=== PATIENT | male | born 1960 | race Caucasian/White ===

== ENCOUNTER 2017-12-20 17:46 | Emergency (ER) | payer OTHER ==
[2017-12-20] MEDS ORDERED: ACETAMINOPHEN 500 MG TAB PO ONE (18:15)
[2017-12-20] MEDS ORDERED: IBUPROFEN 800 MG TAB PO ONE (18:15)
--- NOTE | 2017-12-20 18:29 | EDPHY ---
H & P Time Seen by Provider: 12/20/17 17:52 HPI/ROS: HPI Fever, urinary frequency, body aches. 57-year-old male by private vehicle with his . This patient was at work. At approximately 12 noon he developed sudden-onset fever, muscle aches and joint aches as well as increased frequency with urination and dysuria. He reports he has a history of urinary tract infection 15 years ago. He did not see a urologist at that time. He was treated with ciprofloxacin successfully. Denies any ill contacts. He was vaccinated for influenza. ROS: Constitutional: Fever and chills as above. Fatigue. Eyes: No discharge. No changes in vision. ENT: Mild sore throat. No nasal congestion or rhinorrhea. Respiratory: No cough. No shortness of breath. Cardiac: No chest pain, no palpitations. Gastrointestinal: No abdominal pain, no vomiting, no diarrhea. Genitourinary: No hematuria. As above. No discharge. Musculoskeletal: As above. Skin: No rashes. Neurological: No headache. No focal weakness or altered sensation. Past medical history: As above. Orthopedic surgeries. Social history: Nonsmoker. No alcohol. Here with his . Physical Exam: General Appearance: Alert, no distress. This patient is responding to questions appropriately and in full sentences. This patient appears well- hydrated and well-nourished. Eyes: Pupils equal and round no pallor or injection. No lid edema, erythema or injection. Respiratory: There are no retractions, lungs are clear to auscultation with good air movement bilaterally. Cardiovascular: Regular rate and rhythm. No murmur. Gastrointestinal: Abdomen is soft and nontender, no masses, bowel sounds normal. No focal tenderness at McBurney's point. No Garcia sign. Neurological: Motor sensory function is grossly intact. Cranial nerves are normal. Gait is normal. Skin: Warm and dry, no rashes. Musculoskeletal: Neck is supple and nontender. Extremities are symmetrical. All joints range without pain or impingement. Psychiatric: No agitation. No depression. Database: EKG: Imaging: Procedures: Emergency department course: Vital signs reviewed. He is mildly tachycardic. Moderately hypertensive. Urine specimen obtained. Rapid flu is negative. Patient's urinalysis significant for white cells leukocyte esterase and red cells. Patient's presentation likely secondary to cystitis. Current recommendations are for fluoroquinolone, short course, 5 days of Levaquin, for uncomplicated cystitis in males. 6:40 p.m., patient re-evaluated. Vital signs reviewed. Heart rate now is 88. Fever resolved. I discussed treatment of urinary tract infection with Levaquin with the patient and his . I explained my concerns about possible tendinopathy. Patient consents to Levaquin treatment. He was given 750 mg of oral Levaquin. I will put him on a for additional 5 day course. He will follow up with Urology, Dr. Carroll at the [facility] in the next couple of days for re-evaluation and further management. He is in agreement with this plan. Return to emergency department precautions were reviewed with him. All of his questions were answered. He was discharged in good condition with his . Differential Diagnosis: The differential diagnosis on this patient includes but is not limited to urinary tract infection, influenza, viral syndrome. This represents a partial list of diagnoses considered. These considerations are based on history, physical exam, past history, reassessment and diagnostic testing. Smoking Status: Never smoked Constitutional: Initial Vital Signs Temperature (C) 37.9 C 12/20/17 17:54 Heart Rate 111 H 12/20/17 17:54 Respiratory Rate 20 12/20/17 17:54 Blood Pressure 154/91 H 12/20/17 17:54 O2 Sat (%) 94 12/20/17 17:54 O2 Delivery Mode Room Air Allergies/Adverse Reactions: No Known Allergies Allergy (Unverified 12/20/17 17:54) Home Medications: Medication Instructions Recorded None 09/20/09 levOFLOXACIN [levAQUIN (*)] 750 mg PO DAILY #5 tab 12/20/17 Medical Decision Making - Data Points Laboratory Results: 12/20/17 12/20/17 18:15 18:15 Urine Color YELLOW Urine Appearance HAZY Urine pH 6.0 (5.0-7.5) Ur Specific [place] 1.020 (1.002-1.030) Urine Protein NEGATIVE (NEGATIVE) Urine Ketones 3+ H (NEGATIVE) Urine Blood 1+ H (NEGATIVE) Urine Nitrate NEGATIVE (NEGATIVE) Urine Bilirubin NEGATIVE (NEGATIVE) Urine Urobilinogen 0.2 EU EU (0.2-1.0) Ur Leukocyte Esterase 2+ H (NEGATIVE) Urine RBC 10-15 /hpf H /hpf (0-3) Urine WBC 15-25 /hpf H /hpf (0-3) Ur Epithelial Cells TRACE /lpf /lpf (NONE-1+) Urine Bacteria 1+ /hpf H /hpf (NONE SEEN) Urine Mucus TRACE /lpf /lpf (NONE-1+) Urine Glucose NEGATIVE (NEGATIVE) Influenza A,B Rapid NEGATIVE FOR FLU (NEGATIVE) Medications Given: Discontinued Medications Acetaminophen (Tylenol) 1,000 mg PO EDNOW ONE Stop: 12/20/17 18:16 Last Admin: 12/20/17 18:21 Dose: 1,000 mg Ibuprofen (Motrin) 800 mg PO EDNOW ONE Stop: 12/20/17 18:16 Last Admin: 12/20/17 18:22 Dose: 800 mg Departure - Departure Disposition: Home, Routine, Self-Care Clinical Impression: Urinary tract infection Condition: Good Instructions: Urinary Tract Infection in Men (ED) Additional Instructions: Read and follow provided instructions. Follow-up with Urology, Dr. Carroll, at the [facility] in the next 2-3 days for re-evaluation. Call her office tomorrow morning for appointment time. Take Tylenol as directed for fever control. Take antibiotic as prescribed through entire course of treatment. Drink lots of fluids. Keep well hydrated. A good fluid to drink is Gatorade mixed with water in a 1-1 dilution over ice. Return to the emergency department for worsening symptoms, high fever, back pain , vomiting or other serious concerns. Referrals: Mercedes Carroll MD [Medical Doctor] - As per Instructions Prescriptions: levOFLOXACIN [levAQUIN (*)] 750 mg PO DAILY #5 tab
[2017-12-20 18:45] VITALS: BP 114/78; PULSE 88; RESP 18; TEMP 99; O2SAT 93
== END 2017-12-20 19:04 | disposition home or self-care (01) ==
LOC: CED 17:46
DX: N39.0 Urinary tract infection, site not specified (principal); B96.89 Other specified bacterial agents as the cause of diseases classified elsewhere
CPT/HCPCS: 81003-PO; 81015-PO; 87400-PO